=== PATIENT | female | born 1970 | race Asian ===

== ENCOUNTER 2016-10-16 20:30 | Emergency (ER) | payer OTHER ==
--- NOTE | 2016-10-16 21:50 | ED NURSING NOTES ---
Clinical Report - Nurses [facility] [address] [place] [address] 10/16/2016 20:32 Patient: CONNOR MARTIN TRIAGE Triage time 2100. Acuity: LEVEL 4. Chief Complaint: DIZZINESS and (pt states room is spinning around her when she stands up, or lays down. is not spinning when she is sitting in a chair). YAIMA COMA SCORE: [place] Coma Scale: 15- eyes open spontaneously (4); best verbal response- oriented x 4 (5); best motor response- obeys commands (6). --21:07 Johnna Huerta R.N. 21:00 10/16/16. BP: 157/91. HR: 60. RR: 16. O2 saturation: 100%. Temp: 98.2 F. Pain level now: 0/10. --21:07 Johnna Huerta R.N. Weight: 56.6 kg stated. Height/Length: 59 inches Per Patient. BMI: 25.2. --21:06 Johnna Huerta R.N. Medications Lisinopril Oral 5 mg, daily. --21:04 Johnna Huerta R.N. ASA 81mg at 1999. --21:05 Johnna Huerta R.N. Allergies No Known Drug Allergy. --21:04 Johnna Huerta R.N. History Arrived by private vehicle. Historian: patient. Accompanied by spouse. Primary physician (nils). This started 1930. ( speech is clear, no facial droop tinter photograph are equal and strong). No ear pain, nausea, trouble walking, headache or vomiting. PAST MEDICAL HX: Last normal menstrual period- 1 week. SOCIAL HX: Never smoker. Occasional alcohol use. No drug use. --21:07 Johnna Huerta R.N. PROBLEMS: Cervical Radiculopathy. Headache. Hyperglycemia. Hypertension. --21:07 Johnna Huerta R.N. ADDITIONAL SURGERIES: . --21:07 Johnna Huerta R.N. Interventions ID band on patient. To treatment room. --21:07 Johnna Huerta R.N. PHYSICAL ASSESSMENT 21:00. Ambulatory to room. GENERAL / NEURO / PSYCH: Oriented X 4. Appears in no acute distress. Appears anxious. Alert. Speech within normal limits. ( tinter photograph equal and strong). HEENT: No facial asymmetry noted. RESPIRATORY: Respirations not labored. CVS: Capillary refill less than 2 seconds. GI / : Abdomen soft. SKIN: Skin is warm and dry. --21:08 Johnna Huerta R.N. NURSING PROGRESS NOTES 21:50 10/16/2016 Meclizine PO Tablets 50 mg given. Allergies verified, confirmed 5 rights and sedative warning given to the patient. --22:50 Johnna Huerta R.N. 2100. Patient gowned. Patient identifiers checked. Call light placed in reach. Side rails up. Bed placed in lowest position. Patient ready for evaluation- chart flagged. --22:53 Johnna Huerta R.N. DISPOSITION / DISCHARGE 22:00. Condition at departure: stable. No learning barriers present. Reviewed medication(s) (meclazine). Patient and spouse verbalized understanding. Written instructions provided in Liberian. The patient was discharged home and accompanied by spouse. She left the Emergency Department ambulatory and via private vehicle. Spouse driving. --22:52 Johnna Huerta R.N. 22:00 10/16/16. BP: 148/80. HR: 64. RR: 18. O2 saturation: 100%. Temp: deferred. Pain level now: 0/10. --22:52 Johnna Huerta R.N. Locked/Released at 10/16/2016 22:53 by Johnna Huerta R.N.
--- NOTE | 2016-10-16 21:50 | ED ORDER SUMMARY ---
..... Patient: CONNOR MARTIN OrderSheet [facility] VisitID: [id number] [address] [place] [address] 45y, F Registration Date/Time: 10/16/2016 ORDER SHEET Weight: 56.6 kg (stated) Allergies: No Known Drug Allergy GENERAL ORDERS: MEDICATION ORDERS: Meclizine PO 50 mg (NOW) (21:34 10/16/2016 HBivenzia A.R.N.P.) (Ack 21:49 DDean R.N.) (22:50 DDean R.N.) IV FLUIDS: ORDER SHEET NOTES: [Electronically signed by Johnna Huerta R.N. (22:53 10/16/2016)] [Electronically signed by Mila KiddR.N.P. (23:06 10/16/2016)] [Electronically locked/signed by Johnna Huerta R.N. (22:53 10/16/2016)]
--- NOTE | 2016-10-16 21:50 | ED ORDER SUMMARY ---
..... Patient: CONNOR MARTIN OrderSheet [facility] VisitID: [id number] [address] [place] [address] 45y, F Registration Date/Time: 10/16/2016 ORDER SHEET Weight: 56.6 kg (stated) Allergies: No Known Drug Allergy GENERAL ORDERS: MEDICATION ORDERS: Meclizine PO 50 mg (NOW) (21:34 10/16/2016 HBivenzia A.R.N.P.) (Ack 21:49 DDean R.N.) (22:50 DDean R.N.) IV FLUIDS: ORDER SHEET NOTES: [Electronically signed by Johnna Huerta R.N. (22:53 10/16/2016)] [Electronically signed by Mila KiddR.N.P. (23:06 10/16/2016)] [Electronically locked/signed by Johnna Huerta R.N. (22:53 10/16/2016)]
--- NOTE | 2016-10-16 21:50 | ED CLINICAL REPORT ---
Clinical Report - Physicians/Mid Levels [facility] [address] [place] [address] 10/16/2016 20:32 Patient: CONNOR MARTIN Time Seen: 21:14; initial patient contact, initial documentation, patient care assumed. Arrived- By private vehicle. Historian- patient. HISTORY OF PRESENT ILLNESS Chief Complaint: DIZZINESS. Severity described as severe at its maximum. When seen in the E.D., it was gone. Modifying factors- worsened by turning head, standing up and changing position. (better if sitting in chair, still). Not worsened by anything. Described as a sense of rotation and movement and feeling off balance. Not described as a sense of falling or confusion or feeling light-headed, faint or weak all over. This started just prior to arrival and is now gone. It was abrupt in onset and has been constant. No nausea, vomiting, hearing loss, tinnitus or ear pain. Similar symptoms previously: Once, as bad. Recent medical care: Not recently seen/assessed. REVIEW OF SYSTEMS No headache, double vision, weakness, head injury or chest pain. No numbness or fever. No difficulty walking. All systems otherwise negative, except as recorded above. PAST HISTORY See nurses notes. ( PROBLEMS: Cervical Radiculopathy. Headache. Hyperglycemia. Hypertension. --21:07 Johnna Huerta, R.N. ADDITIONAL SURGERIES: . --21:07 Johnna Huerta, R.N.). SOCIAL HISTORY Never smoker. Occasional alcohol use. No drug use. No recent travel. Is a local resident. FAMILY HISTORY Negative. ADDITIONAL NOTES The nursing notes have been reviewed with agreement regarding the chief complaint, HPI, ROS, PMH and patient medications and allergies. PHYSICAL EXAM Vital Signs: 10/16/2016 21:00 BP: 157/91. HR: 60. RR: 16. O2 saturation: 100%. Temp: 98.2 F. Pain level now: 0/10. Have been reviewed as abnormal and appear to be correct. Hypertensive. Heart rate normal. Respiratory rate normal. Temperature normal. Oxygen saturation normal. Appearance: Alert. No acute distress. Eyes: Pupils equal, round and reactive to light. No nystagmus. Extraocular movements normal. ENT: Normal ENT inspection. TM's normal. Moist mucous membranes. Pharynx normal. Neck: Normal inspection. Neck supple. CVS: Normal heart rate and rhythm. Heart sounds normal. Pulses normal. Respiratory: No respiratory distress. Breath sounds normal. Abdomen: Soft and nontender. No organomegaly. Back: Normal inspection. Skin: Skin warm and dry. Normal skin color. No rash. Normal skin turgor. Extremities: Extremities exhibit normal ROM. No lower extremity edema. Neuro: Alert. Oriented X 3. Mood/affect normal. Speech normal. Cranial nerves normal (as tested). No cerebellar findings. No motor deficit. No sensory deficit. PROGRESS AND PROCEDURES Course of Care: tx options discussed with doing blood work or just meds, pt wanted to try just the meds, because the dizziness was gone, and dr last time did meds. Patient and spouse counseled in person regarding the patient's stable condition and diagnosis. Differential Diagnosis: I considered labyrinthitis, vestibular neuronitis, Meniere's disease, benign positional vertigo, brainstem TIA and metaphorical dizziness such as depression, chronic fatigue, etc as a possible cause of dizziness in this patient. This is a partial list of diagnoses considered. Above considerations are based on history and physical exam. Differential diagnosis was discussed with patient. Disposition: Discharged home in good and improved condition (21:49). Condition: good and stable. CLINICAL IMPRESSION Acute dizziness INSTRUCTIONS Do not work tomorrow. Warnings: GENERAL WARNINGS: Return or contact your physician immediately if your condition worsens or changes unexpectedly, if not improving as expected, or if other problems arise. SPECIFICALLY, return if you develop chest pain, neck pain, jaw pain, shoulder pain, arm pain, back pain, fluttering sensation in your chest, lightheadedness, fainting, numbness, weakness or extreme fatigue. Prescription Medications: Meclizine 25 mg: Take 1 tablet orally every 8 hours as needed for dizziness. Dispense thirty (30). No refills. Follow-up: Follow up with your doctor in about two days even if well. Call for an appointment. Summary of care provided to patient. Understanding of the discharge instructions verbalized by patient. (Electronically signed by Mila Kidd A.R.N.P. 10/16/2016 23:06)
--- NOTE | 2016-10-16 21:50 | ED NURSING NOTES ---
Clinical Report - Nurses [facility] [address] [place] [address] 10/16/2016 20:32 Patient: CONNOR MARTIN TRIAGE Triage time 2100. Acuity: LEVEL 4. Chief Complaint: DIZZINESS and (pt states room is spinning around her when she stands up, or lays down. is not spinning when she is sitting in a chair). YAIMA COMA SCORE: [place] Coma Scale: 15- eyes open spontaneously (4); best verbal response- oriented x 4 (5); best motor response- obeys commands (6). --21:07 Johnna Huerta R.N. 21:00 10/16/16. BP: 157/91. HR: 60. RR: 16. O2 saturation: 100%. Temp: 98.2 F. Pain level now: 0/10. --21:07 Johnna Huerta R.N. Weight: 56.6 kg stated. Height/Length: 59 inches Per Patient. BMI: 25.2. --21:06 Johnna Huerta R.N. Medications Lisinopril Oral 5 mg, daily. --21:04 Johnna Huerta R.N. ASA 81mg at 1999. --21:05 Johnna Huerta R.N. Allergies No Known Drug Allergy. --21:04 Johnna Huerta R.N. History Arrived by private vehicle. Historian: patient. Accompanied by spouse. Primary physician (nils). This started 1930. ( speech is clear, no facial droop whiskey regauger are equal and strong). No ear pain, nausea, trouble walking, headache or vomiting. PAST MEDICAL HX: Last normal menstrual period- 1 week. SOCIAL HX: Never smoker. Occasional alcohol use. No drug use. --21:07 Johnna Huerta R.N. PROBLEMS: Cervical Radiculopathy. Headache. Hyperglycemia. Hypertension. --21:07 Johnna Huerta R.N. ADDITIONAL SURGERIES: . --21:07 Johnna Huerta R.N. Interventions ID band on patient. To treatment room. --21:07 Johnna Huerta R.N. PHYSICAL ASSESSMENT 21:00. Ambulatory to room. GENERAL / NEURO / PSYCH: Oriented X 4. Appears in no acute distress. Appears anxious. Alert. Speech within normal limits. ( whiskey regauger equal and strong). HEENT: No facial asymmetry noted. RESPIRATORY: Respirations not labored. CVS: Capillary refill less than 2 seconds. GI / : Abdomen soft. SKIN: Skin is warm and dry. --21:08 Johnna Huerta R.N. NURSING PROGRESS NOTES 21:50 10/16/2016 Meclizine PO Tablets 50 mg given. Allergies verified, confirmed 5 rights and sedative warning given to the patient. --22:50 Johnna Huerta R.N. 2100. Patient gowned. Patient identifiers checked. Call light placed in reach. Side rails up. Bed placed in lowest position. Patient ready for evaluation- chart flagged. --22:53 Johnna Huerta R.N. DISPOSITION / DISCHARGE 22:00. Condition at departure: stable. No learning barriers present. Reviewed medication(s) (meclazine). Patient and spouse verbalized understanding. Written instructions provided in [place]. The patient was discharged home and accompanied by spouse. She left the Emergency Department ambulatory and via private vehicle. Spouse driving. --22:52 Johnna Huerta R.N. 22:00 10/16/16. BP: 148/80. HR: 64. RR: 18. O2 saturation: 100%. Temp: deferred. Pain level now: 0/10. --22:52 Johnna Huerta R.N. Locked/Released at 10/16/2016 22:53 by Johnna Huerta R.N.
--- NOTE | 2016-10-16 23:06 | ED DISCHARGE INSTRUCTIONS ---
Patient: CONNOR MARTIN General Instructions [facility] VisitID: [id number] [place] [address] 45y, F Registration Date/Time: 10/16/2016 Acute dizziness INSTRUCTIONS Do not work tomorrow. Warnings: GENERAL WARNINGS: Return or contact your physician immediately if your condition worsens or changes unexpectedly, if not improving as expected, or if other problems arise. SPECIFICALLY, return if you develop chest pain, neck pain, jaw pain, shoulder pain, arm pain, back pain, fluttering sensation in your chest, lightheadedness, fainting, numbness, weakness or extreme fatigue. Prescription Medications: Meclizine 25 mg: Take 1 tablet orally every 8 hours as needed for dizziness. Dispense thirty (30). No refills. Follow-up: Follow up with your doctor in about two days even if well. Call for an appointment. Summary of care provided to patient. Understanding of the discharge instructions verbalized by patient. ADDITIONAL INFORMATION Dizziness [Uncertain Cause] Dizziness is a common symptom sometimes described as "lightheadedness" or feeling like you are going to faint. If it lasts for only a few seconds and is related to changes in position (such as getting up after lying or sitting for a long time), it is usually not a sign of anything serious. Dizziness that lasts for minutes to hours, or comes on for no apparent reason, may be a sign of a more serious problem (such as dehydration, a medicine reaction, disease of the heart or brain). Today's exam did not show an exact cause for your dizzy spell . Sometimes additional tests are required before a cause can be found. Therefore, it is important to follow up with your doctor if your symptoms continue. Home Care: 1) If a dizzy spell occurs and lasts more than a few seconds, lie down until it passes. If you are lying down, then you cannot hurt yourself by falling if you do faint. 2) Do not drive or operate dangerous equipment until the dizzy spells have stopped for at least 48 hours. 3) If dizzy spells occur with sudden standing, this may be a sign of mild dehydration. Drink extra fluids over the next few days. 4) If you recently started a new medicine or if you had the dose of a current medicine increased (especially blood pressure medicine), talk with the prescribing doctor about your symptoms. Dose adjustments may be needed. Follow Up with your doctor for further evaluation within the next seven days, if your symptoms continue. Get Prompt Medical Attention if any of the following occur: -- Worsening of your symptoms -- Fainting, headache or seizure -- Repeated vomiting -- Feeling like you or the room is spinning -- Chest, arm, neck, back or jaw pain -- Palpitations (the sense that your heart is fluttering or beating fast or hard) -- Shortness of breath -- Blood in vomit or stool (black or red color) -- Weakness of an arm or leg or one side of the face -- Difficulty with speech or vision Benign Positional Vertigo The inner ear is located behind the middle ear. It is a part of the balance center of the body. It contains small calcium particles within fluid filled canals (semi-circular canals). These particles can move out of position as a result of aging, head trauma or disease of the inner ear. Once that happens, movement of the head into certain positions may cause the particles to stimulate the inner ear and create the feeling of vertigo. Vertigo is a false feeling of motion (as if you or the room is spinning). A vertigo attack may cause sudden nausea, vomiting and heavy sweating. Severe vertigo causes a loss of balance and may result in falling. During an attack of vertigo, head movement and body position changes will worsen symptoms. An episode of vertigo may last seconds, minutes or hours. Once you are over the first episode of vertigo, it may never return. Sometimes symptoms recur off and on over several weeks or longer. Home Care: If symptoms are severe, rest quietly in bed. Change positions slowly. There is usually one position that will feel best, such as lying on one side or lying on your back with your head slightly raised on pillows. Do not drive or work with dangerous machinery for one week after symptoms disappear, in case of a sudden return of symptoms. Take medicine as prescribed to relieve your symptoms. Unless another medicine was prescribed for nausea, vomiting and vertigo, you may use [id number] motion sickness pills, such as meclizine (Bonine, Bonamine, Antivert) or dimenhydrinate (Dramamine). Follow Up with your doctor or as directed by our staff. Report any persistent ringing in the ear or hearing loss to your doctor. [NOTE: If you had a CT or MRI scan, it will be reviewed by a specialist. You will be notified of any new findings that may affect your care.] Get Prompt Medical Attention if any of the following occur: Worsening of vertigo not controlled by the medicine prescribed Repeated vomiting not controlled by the medicine prescribed Increased weakness or fainting Severe headache or unusual drowsiness or confusion Weakness of an arm or leg or one side of the face Difficulty with speech or vision Seizure Meclizine Hydrochloride Oral tablet What is this medicine? MECLIZINE (MEK li kathryn) is an antihistamine. It is used to prevent nausea, vomiting, or dizziness caused by motion sickness. It is also used to prevent and treat vertigo (extreme dizziness or a feeling that you or your surroundings are tilting or spinning around). How should I use this medicine? Take this medicine by mouth with a glass of water. Follow the directions on the prescription label. If you are using this medicine to prevent motion sickness, take the dose at least 1 hour before travel. If it upsets your stomach, take it with food or milk. Take your doses at regular intervals. Do not take your medicine more often than directed. Talk to your hat blocking machine operator regarding the use of this medicine in children. Special care may be needed. What side effects may I notice from receiving this medicine? Side effects that you should report to your doctor or health account executive healthcare as soon as possible: fainting spells fast or irregular heartbeat Side effects that usually do not require medical attention (report to your doctor or health account executive healthcare if they continue or are bothersome): constipation difficulty passing urine difficulty sleeping headache stomach upset What may interact with this medicine? barbiturate medicines for inducing sleep or treating seizures digoxin medicines for anxiety or sleeping problems, like alprazolam, diazepam or temazepam medicines for hay fever and other allergies medicines for mental depression medicines for movement abnormalities as in Parkinson's disease, or for stomach problems medicines for pain medicines that relax muscles What if I miss a dose? If you miss a dose, take it as soon as you can. If it is almost time for your next dose, take only that dose. Do not take double or extra doses. Where should I keep my medicine? Keep out of the reach of children. Store at room temperature between 15 and 30 degrees C (59 and 86 degrees F). Keep container tightly closed. Throw away any unused medicine after the expiration date. What should I tell my health care provider before I take this medicine? They need to know if you have any of these conditions: asthma glaucoma prostate trouble stomach problems urinary problems an unusual or allergic reaction to meclizine, other medicines, foods, dyes, or preservatives or trying to get breast-feeding What should I watch for while using this medicine? If you are taking this medicine on a regular schedule, visit your doctor or health account executive healthcare for regular checks on your progress. You may get dizzy, drowsy or have blurred vision. Do not drive, use machinery, or do anything that needs mental alertness until you know how this medicine affects you. Do not stand or sit up quickly, especially if you are an older patient. This reduces the risk of dizzy or fainting spells. Alcohol can increase possible dizziness. Avoid alcoholic drinks. Your mouth may get dry. Chewing sugarless gum or sucking hard candy, and drinking plenty of water may help. Contact your doctor if the problem does not go away or is severe. This medicine may cause dry eyes and blurred vision. If you wear contact lenses you may feel some discomfort. Lubricating drops may help. See your eye doctor if the problem does not go away or is severe. You have been given the following additional information: Dizziness, Unk Cause Benign Positional Vertigo Meclizine Hydrochloride Oral tablet Do not work tomorrow. (Electronically signed by Mila Kidd A.R.N.P. 10/16/2016 23:06)
--- NOTE | 2016-10-16 23:06 | ED MED RECONCILIATION SUMMARY ---
Patient: CONNOR MARTIN Medication Reconciliation Report [facility] VisitID: [id number] [address] [place] [address] 45y, F Registration Date/Time: 10/16/2016 Weight: 56.6 kg Height/Length: 59 in. BMI: 25.2 ALLERGIES: No Known Drug Allergy The patient's Home Medications are listed below: THE FOLLOWING MEDICATIONS NEED TO BE RECONCILED: ASA 81mg at 2000 Lisinopril Oral 5 mg, daily The source(s) of the original Home Medication information: Not obtained. The following Medications were given to the patient in the Emergency Department: Meclizine [PO] PO 50 mg, administered: 10/16/2016 9:50:00 PM The following Medications were prescribed to the patient: Meclizine 25 mg: Take 1 tablet orally every 8 hours as needed for dizziness. Dispense thirty (30). No refills. -- Mila Kidd A.R.N.P.
--- NOTE | 2016-10-16 23:06 | ED MAR SUMMARY ---
..... Medication Administration Record [facility] [address] [place] [address] Patient: CONNOR MARTIN Visit ID: [id number] 45y, F Weight: 56.6 kg Height/Length: 59 in BMI: 25.2 ALLERGIES: No Known Drug Allergy Given 21:50 10/16/2016 Bradley, Johnna RVlad Medication Administered: MECLIZINE [PO], Dose: 50 mg Tablets PO. Medication Ordered: Meclizine PO 50 mg (NOW).
--- NOTE | 2016-10-16 23:06 | ED MAR SUMMARY ---
..... Medication Administration Record [facility] [address] [place] [address] [address] Patient: CONNOR MARTIN Visit ID: [id number] 45y, F Weight: 56.6 kg Height/Length: 59 in BMI: 25.2 ALLERGIES: No Known Drug Allergy Given 21:50 10/16/2016 Bradley, Johnna RVlad Medication Administered: MECLIZINE [PO], Dose: 50 mg Tablets PO. Medication Ordered: Meclizine PO 50 mg (NOW).
--- NOTE | 2016-10-16 23:06 | ED MED RECONCILIATION SUMMARY ---
Patient: CONNOR MARTIN Medication Reconciliation Report [facility] VisitID: [id number] [address] [place] [address] 45y, F Registration Date/Time: 10/16/2016 Weight: 56.6 kg Height/Length: 59 in. BMI: 25.2 ALLERGIES: No Known Drug Allergy The patient's Home Medications are listed below: THE FOLLOWING MEDICATIONS NEED TO BE RECONCILED: ASA 81mg at 2000 Lisinopril Oral 5 mg, daily The source(s) of the original Home Medication information: Not obtained. The following Medications were given to the patient in the Emergency Department: Meclizine [PO] PO 50 mg, administered: 10/16/2016 9:50:00 PM The following Medications were prescribed to the patient: Meclizine 25 mg: Take 1 tablet orally every 8 hours as needed for dizziness. Dispense thirty (30). No refills. -- Mila Kidd A.R.N.P.
== END 2016-10-16 22:00 | disposition home or self-care (01) ==
LOC: ED SRH 20:30
DX: R42 Dizziness and giddiness (principal); Z79.82 Long term (current) use of aspirin; Z79.899 Other long term (current) drug therapy